=== PATIENT | male | born 1990 ===

== ENCOUNTER 2017-03-19 23:33 | Emergency (ER) | payer MEDICAID, OTHER ==
[2017-03-19 23:35] VITALS: BMI 36.2
[2017-03-20 01:01] VITALS: RESP 16; O2SAT 98
[2017-03-20] MEDS ORDERED: Amoxicillin-Clav 875-125 mg Tab PO STA (01:10)
--- NOTE | 2017-03-20 01:12 | C.PDOC ---
History Of Present Illness 26 year old male presents to the ER for an evaluation of a low grade fever and sore throat for the past few days. Patient reports he was unable to swallow today due to the pain. Denies headache, dizziness, drooling, trismus, toothache , cough, CP, SOB, dyspnea, wheezing, abdominal pain, vomiting, diarrhea. back pain, UTI sx. Ambulate to ED for evaluation, not n any apparent distress.. Time Seen by Provider: 03/20/17 00:11 Chief Complaint (Nursing): Back Pain History Per: Patient History/Exam Limitations: no limitations Onset/Duration Of Symptoms: Days Current Symptoms Are (Timing): Still Present Quality Of Discomfort: Unable To Describe Previous Symptoms: None Associated Symptoms: None Exacerbating Factor(s): Nothing Recent travel outside of the [place]: No Past Medical History Reviewed: Historical Data, Nursing Documentation, Vital Signs Vital Signs: Last Vital Signs Temp 99.2 F 03/20/17 00:54 Pulse 86 03/20/17 00:54 Resp 16 03/20/17 00:54 BP 134/78 03/20/17 00:54 Pulse Ox 98 03/20/17 01:25 - Medical History PMH: Bipolar Disorder, Depression, Post Traumatic Stress Disorder, Schizophrenia - [facility] GROUP PSYCHOTHERAPY (04/24/15) INDIVIDUAL PSYCHOTHERAPY, COGNITIVE-BEHAVIORAL (04/24/15) MEDICATION MANAGEMENT (12/19/15) Family History: States: Unknown Family Hx - Social History Hx Alcohol Use: Yes Hx Substance Use: No - Immunization History Hx Tetanus Toxoid Vaccination: No Hx Influenza Vaccination: No Hx Pneumococcal Vaccination: No Review Of Systems Except As Marked, All Systems Reviewed And Found Negative. Constitutional: Positive for: Fever ENT: Positive for: Throat Pain. Negative for: Mouth Pain, Other (Drooling) Gastrointestinal: Negative for: Vomiting, Abdominal Pain Neurological: Negative for: Headache, Dizziness Physical Exam - Physical Exam Appears: Well, Non-toxic, No Acute Distress Skin: Normal Color, Warm, Dry, No Rash Head: Normacephalic Eye(s): bilateral: PERRL Ear(s): Bilateral: Normal Nose: No Flaring, No Discharge Oral Mucosa: Moist, No Drooling Tongue: Normal Appearing Lips: Normal Appearing Throat: Erythema (B/L with mod edema), No Exudate, No Drooling Neck: Trachea Midline, No Supple Cardiovascular: Rhythm Regular Respiratory: No Decreased Breath Sounds, No Accessory Muscle Use, No Stridor, No Wheezing Gastrointestinal/Abdominal: No Soft, No Tenderness, No Distention, No Guarding Back: No CVA Tenderness Extremity: Normal ROM, No Deformity, No Swelling Neurological/Psych: Oriented x3, Normal Speech ED Course And Treatment O2 Sat by Pulse Oximetry: 98 Pulse Ox Interpretation: Normal Progress Note: On re-evaluation, pt is afebrile, hemodynamicaly stable. Non- toxic. AMbulatory in ED with stable gait. PUlseOx 98% RA. Neck: SUpple, (-) meningeal sign. ENT: exam c/w acute pharyngitis. neck: SUpple, (-) meningeal sign. LUngs: CTA B/L, BS equal B/L. Abd: benign. Neuorlogicaly intact. Pt advised. ref. to [facility] in 2-3 days for re-eavl. return if any new changes. Disposition Counseled Patient/Family Regarding: Diagnosis, Need For Followup, Rx Given - Disposition Referrals: [facility] [Outside] Disposition: HOME/ ROUTINE Disposition Time: 01:10 Condition: STABLE Additional Instructions: ENCOURAGE FLUIDS TAKE MEDICATION PRESCRIBED FOLLOW UP WITH PMD IN 2-3 DAYS FOR RE-EVALUATION. RETURN TO ED IF ANY WORSENING OR NEW CHANGES. Prescriptions: Amoxicillin/Clavulanate [Augmentin 875 MG-125 MG] 1 tab PO BID #14 tab Ibuprofen [Motrin Tab] 600 mg PO Q6 #20 tab Instructions: Pharyngitis (ED) Forms: [facility] (Pashto) - Clinical Impression Clinical Impression: Pharyngitis - Scribe Statement The provider has reviewed the documentation as recorded by the Scribyessi Chambers All medical record entries made by the Miribyessi were at my direction and personally dictated by me. I have reviewed the chart and agree that the record accurately reflects my personal performance of the history, physical exam, medical decision making, and the department course for this patient. I have also personally directed, reviewed, and agree with the discharge instructions and disposition.
[2017-03-20] MEDS ORDERED: Amoxicillin-Clav 875-125 mg Tab PO ONE (01:26)
[2017-03-20 01:58] VITALS: BP 134/74; PULSE 84; TEMP 98.8
== END 2017-03-20 01:58 | disposition home or self-care (01) ==
LOC: C.ER 23:33
DX: J02.9 Acute pharyngitis, unspecified (principal); F17.210 Nicotine dependence, cigarettes, uncomplicated